=== PATIENT | male | born 1980 | race Caucasian/White ===

== ENCOUNTER 2016-11-11 08:52 | Inpatient (IN) | payer OTHER ==
[2016-11-11 08:54] VITALS: BMI 22.8
--- NOTE | 2016-11-11 13:54 | HP ---
CIWA Score - CIWA Score Nausea/Vomitin-Int. Nausea w/Dry Heave Muscle Tremors: 4-Moderate,w/Arms Extend Anxiety: 4-Mod. Anxious/Guarded Agitation: 4-Moderately Restless Paroxysmal Sweats: 1-Minimal Palms Moist Orientation: 0-Oriented Tacttile Disturbances: 3-Moderate Itch/Numb/Burn Auditory Disturbances: 0-None Visual Disturbances: 0-None Headache: 1-Very Mild CIWA-Ar Total Score: 21 Admission ROS S - HPI Chief Complaint: DETOX TX FOR ALCOHOL DEPENDENCE Allergies/Adverse Reactions: Allergies Allergy/AdvReac Type Severity Reaction Status Date / Time No Known Allergies Allergy Verified 11/11/16 12:06 History of Present Illness: 36 Y/O H/M WITH A HX OF ALCOHOL,COCAINE AND HEROIN DEPENDENCE SEEKING [facility] TX[facility]. LAST DOSE 11/03/16. Exam Limitations: No Limitations - Ebola screening Have you traveled outside of the country in the last 21 days: No Have you had contact with anyone from an Ebola affected area: No Have you been sick,other than usual withdrawal symptoms: No Do you have a fever: No - Review of Systems Constitutional: Chills, Loss of Appetite, Night Sweats, Changes in sleep EENT: reports: Blurred Vision, Tearing, Nose Congestion, Dental Problems ( MISSING TEETH) Respiratory: reports: No Symptoms reported Cardiac: reports: Lightheadedness GI: reports: Constipated, Nausea, Poor Appetite, Poor Fluid Intake, Vomiting : reports: Frequency Musculoskeletal: reports: Back Pain, Joint Pain, Muscle Pain Integumentary: reports: Bruising (REDNESS AND SWELLING TO RIGHT UPPER ARM DUE TO IVDU.) Neuro: reports: Headache, Numbness, Tremors, Unsteady Gait, Dizziness Endocrine: reports: No Symptoms Reported Hematology: reports: No Symptoms Reported Psychiatric: reports: Orientated x3, Anxious Other Systems: Reviewed and Negative Patient History - Patient Medical History Hx Anemia: No Hx Asthma: No Hx Chronic Obstructive Pulmonary Disease (COPD): No Hx Cardiac Disorders: No Hx Hypertension: No Hx Seizures: No Hx Diabetes: No Hx Gastrointestinal Disorders: No Hx Genitourinary Disorders: No Hx Sexually Transmitted Disorders: No Hx Renal Disease (ESRD): No Hx Thyroid Disease: No Hx Human Immunodeficiency Virus (HIV): No (NEGATIVE HX) Hx Hepatitis C: Yes Hx Depression: No Hx Suicide Attempt: No Hx Schizophrenia: No - Patient Surgical History Past Surgical History: No Hx Neurologic Surgery: No Hx Cataract Extraction: No Hx Cardiac Surgery: No Hx Lung Surgery: No Hx Breast Surgery: No Hx Breast Biopsy: No Hx Abdominal Surgery: No Hx Appendectomy: No Hx Cholecystectomy: No Hx Genitourinary Surgery: No Hx Orthopedic Surgery: No Anesthesia Reaction: No - PPD History Previous Implant?: Yes Documented Results: Negative w/o proof Implanted On Prior R Admission?: No PPD to be Administered?: Yes - Reproductive History Patient is a Female of Child Bearing Age (11 -55 yrs old): No (MALE) Patient : No (N/A) - Smoking Cessation Smoking history: Current every day smoker Have you smoked in the past 12 months: Yes Aproximately how many cigarettes per day: 20 Hx Chewing Tobacco Use: No Initiated information on smoking cessation: Yes 'Breaking Loose' booklet given: 11/11/16 - Substance & Tx. History Hx Alcohol Use: Yes (VODKA/BEER) Substance Use Type: Alcohol, Cocaine, Heroin Hx Substance Use Treatment: Yes (CURRENTLY AT [facility] ) - Substances Abused Heroin Route: Injection Frequency: Daily Amount used: 10-15 bags Age of first use: 14 Date of Last Use: 11/10/16 Alcohol-vodka/beer Route: Oral Frequency: Daily Amount used: 2 pts./1 case Age of first use: 15 Date of Last Use: 11/10/16 Cocaine Route: Injection Frequency: 3-6 times per week (2-3 X/WEEK) Amount used: $3 BAGS Age of first use: 14 Date of Last Use: 11/03/16 Family Disease History - Family Disease History Family Disease History: Diabetes: Grandparent (MGF-HTN), Mother, Heart Disease: Grandparent Admission Physical Exam BHS - Vital Signs Vital Signs: Vital Signs - 24 hr 11/11/16 08:53 Temperature 97.7 F Pulse Rate 76 Respiratory 18 Rate Blood Pressure 113/75 - Physical General Appearance: Yes: Moderate Distress, Irritable, Anxious HEENTM: Yes: EOMI, Normocephalic, KALEY, Pharynx Normal Respiratory: Yes: Chest Non-Tender, Lungs Clear, Normal Breath Sounds, No Respiratory Distress Neck: Yes: No masses,lesions,Nodules, Supple, Trachea in good position Breast: Yes: Breast Exam Deferred Cardiology: Yes: Regular Rhythm, Regular Rate, S1, S2 Abdominal: Yes: Normal Bowel Sounds, Non Tender, Flat, Soft Genitourinary: Yes: Other (N/C) Back: Yes: Within Normal Limits Musculoskeletal: Yes: full range of Motion, Gait Steady Extremities: Yes: Normal Range of Motion, Non-Tender 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, Fully Oriented, Alert Integumentary: Yes: Dry, Warm, Track Lu (RIGHT UPPER ARM WITH ABSCESS/REDNESS /WARMTH) Lymphatic: Yes: Within Normal Limits - Diagnostic (1) Alcohol dependence with uncomplicated withdrawal Status: Acute (2) Cocaine dependence, uncomplicated Status: Acute (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
[2016-11-11] MEDS ORDERED: diphenhydrAMINE HCL 50 MG CAPSULE PO PRN (14:06)
[2016-11-11] MEDS ORDERED: P-EPHED 60MG/TRIPROLIDI 2.5MG TABLET PO PRN (14:06)
[2016-11-11] MEDS ORDERED: MAGNESIUM CITRATE 300 ML BOTTLE PO PRN (14:06)
[2016-11-11] MEDS ORDERED: MAGNESIUM HYDROX 2400MG/30ML ORAL SUSPENSION 30 ML CUP PO PRN (14:06)
[2016-11-11] MEDS ORDERED: chlordiazePOXIDE HCL 25 MG CAPSULE PO PRN (14:06)
[2016-11-11] MEDS ORDERED: guaiFENesin/D-METHORPHAN HB 10 ML UNIT-DOSE CUPS PO PRN (14:06)
[2016-11-11] MEDS ORDERED: ACETAMINOPHEN 325 MG TABLET (FP) PO PRN (14:06)
[2016-11-11] MEDS ORDERED: chlordiazePOXIDE HCL 25 MG CAPSULE PO ONE (14:16)
[2016-11-11] MEDS ORDERED: METHADONE HCL 10 MG TABLET PO ONE (14:20)
--- NOTE | 2016-11-11 14:55 | CONSULT ---
[facility] Psychiatric Consult - Data Date of interview: 11/11/16 Admission source: [facility] Identifying data: This is 36 years old male with no psychiatric hospitalization history intoxicated with: Cocaine, Alcohol, Heroin, Nicotine, Methadone Substance Abuse History: Drug Screen Negative: No. Urine Drug Screen Results: CARSON-Cocaine, OPI-Opiates, MTD-Methadone. - Smoking Cessation. Smoking history : Current every day smoker. Have you smoked in the past 12 months: Yes. Aproximately how many cigarettes per day: 20. Hx Chewing Tobacco Use: No. Initiated information on smoking cessation: Yes. 'Breaking Loose' booklet given : 11/11/16. - Substance & Tx. History. Hx Alcohol Use: Yes (VODKA/BEER). Substance Use Type: Alcohol, Cocaine, Heroin. Hx Substance Use Treatment: Yes ( CURRENTLY AT [facility] ). - Substances Abused. Heroin. Route: Injection. Frequency: Daily. Amount used: 10-15 bags. Age of first use : 14. Date of Last Use: 11/10/16. Alcohol-vodka/beer. Route: Oral. Frequency: Daily. Amount used: 2 pts./1 case. Age of first use: 15. Date of Last Use: 11/10/16. Cocaine. Route: Injection. Frequency: 3-6 times per week (2-3 X/WEEK). Amount used: $3 BAGS. Age of first use: 14. Date of Last Use: 11/03/16 Medical History: HepC+, MMTP 30mg poqd Psychiatric History: Patient reports history of anxiety, reports no history of psychiatric admissions, reports no medications taking prior top admission. Patient reports unclear history of Schizophrenia, reports no psychiatric medications taking prior to admission, reports nost recent admission on few years ago at [facility] for safety. Reports taking Seroquel 100mg po qhs for insomnia. Reports no suicidal history Physical/Sexual Abuse/Trauma History: Denies Additional Comment: Drug Screen Negative: No. Urine Drug Screen Results: CARSON- Cocaine, OPI-Opiates, MTD-Methadone Mental Status Exam - Mental Status Exam Alert and Oriented to: Person Cognitive Function: Fair Patient Appearance: Well Groomed Mood: Euthymic Affect: Mood Congruent Patient Behavior: Cooperative Speech Pattern: Appropriate Voice Loudness: Normal Thought Process: Goal Oriented Thought Disorder: Being Controlled Hallucinations: Denies Suicidal Ideation: Denies Homicidal Ideation: Denies Insight/Judgement: Fair Sleep: Difficulty falling asleep Appetite: Fair Muscle strength/Tone: Normal Gait/Station: Normal Additional Comments: Observation. Detox Unit Care Protocol Psychiatric Findings - Problem List (Hooks 1, 2,3) (1) Alcohol dependence with uncomplicated withdrawal Current Visit: Yes Status: Acute (2) Cocaine dependence, uncomplicated Current Visit: Yes Status: Acute (3) Methadone maintenance therapy patient Current Visit: Yes Status: Chronic (4) Heroin dependence Current Visit: Yes Status: Acute (5) Nicotine dependence Current Visit: Yes Status: Acute (6) Drug-induced mood disorder Current Visit: Yes Status: Acute - Initial Treatment Plan Initial Treatment Plan: Observation. Detox Unit Care Protocol. Seroquel 100mg po qhs
[2016-11-11] MEDS: BACITRACIN 0.9 GM PACKET TP SCH (15:14)
[2016-11-11] MEDS: NICOTINE 21 MG/24 HOURS TOPICAL PATCH TD SCH (15:15)
[2016-11-11 16:55] LABS: URINE APPEARANCE CLEAR; URINE BILIRUBIN NEGATIVE (NEGATIVE); URINE BLOOD 1+ (NEGATIVE); URINE COLOR YELLOW; URINE GLUCOSE (UA) NEGATIVE (NEGATIVE); URINE KETONE TRACE (NEGATIVE); URINE LEUK ESTERASE NEGATIVE (NEGATIVE); URINE NITRITE NEGATIVE (NEGATIVE); URINE PROTEIN NEGATIVE (NEGATIVE)
[2016-11-11] MEDS: chlordiazePOXIDE HCL 25 MG CAPSULE PO SCH ×2 (17:53→22:07)
[2016-11-11 18:09] LABS: CALCIUM OXALATE CRYSTALS FEW /hpf (NONE SEEN); URINE BACTERIA RARE /hpf (NONE SEEN); URINE HYALINE CAST 1 /lpf; URINE MUCUS RARE; URINE RBC 5 /hpf (0-3); URINE WBC <1 /hpf (3-5)
[2016-11-11] MEDS: NICOTINE POLACRILEX 4 MG GUM BUC PRN (18:20)
[2016-11-11] MEDS: CEPHALEXIN MONOHYDRATE 500 MG CAPSULE (UD) PO SCH (22:07)
[2016-11-11] MEDS: QUEtiapine FUMARATE 100 MG TABLET (FP) PO SCH (22:07)
[2016-11-11] MEDS: THIAMINE HCL 100 MG TABLET (FP) PO SCH (22:07)
[2016-11-12] MEDS: chlordiazePOXIDE HCL 25 MG CAPSULE PO SCH ×4 (05:54→22:40)
[2016-11-12] MEDS ORDERED: METHADONE HCL 40 MG DISPERSABLE TABLET PO ONE (06:00)
--- NOTE | 2016-11-12 09:26 | EKG ---
Test Reason : Blood Pressure : / mmHG Vent. Rate : 071 BPM Atrial Rate : 071 BPM P-R Int : 136 ms QRS Dur : 106 ms QT Int : 414 ms P-R-T Axes : 063 049 044 degrees QTc Int : 449 ms NORMAL SINUS RHYTHM INCOMPLETE RIGHT BUNDLE BRANCH BLOCK NO PREVIOUS ECGS AVAILABLE Confirmed by TED FERMIN MD ([id number]) on 11/12/2016 9:26:04 AM Referred By: Confirmed By:TED FERMIN MD
[2016-11-12] MEDS: NICOTINE POLACRILEX 4 MG GUM BUC PRN (09:51)
[2016-11-12] MEDS: PRENATAL VITAMINS W/ FOLIC ACID TABLET (FP) PO SCH (10:10)
[2016-11-12] MEDS: BACITRACIN 0.9 GM PACKET TP SCH (10:10)
[2016-11-12] MEDS: CEPHALEXIN MONOHYDRATE 500 MG CAPSULE (UD) PO SCH ×2 (10:11→22:41)
[2016-11-12] MEDS: NICOTINE 21 MG/24 HOURS TOPICAL PATCH TD SCH (10:11)
[2016-11-12 10:17] LABS: MCH 29.3 pg (25.7-33.7); MCHC 33.3 g/dl (32.0-35.9); MEAN CELL VOLUME 88.2 fl (80-96); MEAN PLT VOLUME 9.9 fl (7.5-11.1); PLATELET COUNT 222 K/MM3 (134-434); RDW 13.6 % (11.9-15.9); WHITE BLOOD COUNT 7.2 K/mm3 (4.0-10.0)
--- NOTE | 2016-11-12 10:27 | PN ---
[facility] CIWA - CIWA Score Nausea/Vomitin Muscle Tremors: 3 Anxiety: 3 Agitation: 3 Paroxysmal Sweats: 1-Minimal Palms Moist Orientation: 0-Oriented Tacttile Disturbances: 1-Very Mild Itch/Numbness Auditory Disturbances: 1-Very Mild Visual Disturbances: 1-Very Mild Sensitivity Headache: 2-Mild CIWA-Ar Total Score: 18 S Progress Note (SOAP) Subjective: ALERT,IRRITABLE,ANXIOUS,INTERRUPTED SLEEP,TREMOR Objective: 11/12/16 10:24 Vital Signs Temperature 96.1 F L 11/12/16 10:00 Pulse Rate 82 11/12/16 10:00 Respiratory Rate 18 11/12/16 10:00 Blood Pressure 110/63 11/12/16 10:00 O2 Sat by Pulse Oximetry (%) EKG NSR, NO CHEST PAIN,NO SOB,NO DIZZINESS Laboratory Last Values WBC 7.2 K/mm3 (4.0-10.0) 11/12/16 06:00 RBC 4.66 M/mm3 (4.00-5.60) 11/12/16 06:00 Hgb 13.7 GM/dL (11.7-16.9) 11/12/16 06:00 Hct 41.1 % (35.4-49) 11/12/16 06:00 MCV 88.2 fl (80-96) 11/12/16 06:00 MCH 29.3 pg (25.7-33.7) 11/12/16 06:00 MCHC 33.3 g/dl (32.0-35.9) 11/12/16 06:00 RDW 13.6 % (11.9-15.9) 11/12/16 06:00 Plt Count 222 K/MM3 (134-434) 11/12/16 06:00 MPV 9.9 fl (7.5-11.1) 11/12/16 06:00 Urine Color Yellow 11/11/16 14:40 Urine Appearance Clear 11/11/16 14:40 Urine pH 5.0 (5.0-8.0) 11/11/16 14:40 Ur Specific [place] 1.025 (1.005-1.025) 11/11/16 14:40 Urine Protein Negative (NEGATIVE) 11/11/16 14:40 Urine Glucose (UA) Negative (NEGATIVE) 11/11/16 14:40 Urine Ketones Trace (NEGATIVE) H 11/11/16 14:40 Urine Blood 1+ (NEGATIVE) H 11/11/16 14:40 Urine Nitrite Negative (NEGATIVE) 11/11/16 14:40 Urine Bilirubin Negative (NEGATIVE) 11/11/16 14:40 Urine Urobilinogen 2.0 mg/dL (0.2-1.0) 11/11/16 14:40 Ur Leukocyte Esterase Negative (NEGATIVE) 11/11/16 14:40 Urine RBC 5 /hpf (0-3) 11/11/16 14:40 Urine WBC <1 /hpf (3-5) 11/11/16 14:40 Ur Epithelial Cells Rare /hpf (FEW) 11/11/16 14:40 Calcium Oxalate Crystal Few /hpf (NONE SEEN) 11/11/16 14:40 Urine Bacteria Rare /hpf (NONE SEEN) 11/11/16 14:40 Hyaline Casts 1 /lpf 11/11/16 14:40 Urine Mucus Rare 11/11/16 14:40 HIV 1&2 Antibody Screen [facility] 11/11/16 13:30 HIV P24 Antigen [facility] 11/11/16 13:30 Assessment: 11/12/16 10:26 WITHDRAWAL SYMPTOM Plan: CONTINUE DETOX
[2016-11-12 10:43] LABS: ALBUMIN 4.4 g/dl (3.4-5.0); ALK PHOS 74 U/L (45-117); ANION GAP 9 (8-16); BILIRUBIN,TOTAL 1.1 mg/dL (0.2-1.0); CALCIUM 9.7 mg/dL (8.5-10.1); CO2 26 mmol/L (21-32); CREATININE 1.1 mg/dL (0.7-1.3); GLUCOSE,RANDOM 98 mg/dL (74-106); SGOT/AST 24 U/L (15-37); SGPT/ALT 45 U/L (12-78); TOT PROT 8.1 g/dl (6.4-8.2)
[2016-11-12] MEDS ORDERED: hydrOXYzine PAMOATE 50 MG CAPSULE (FP) PO PRN (12:00)
[2016-11-12 14:04] LABS: HIV 1 & 2 AB NEGATIVE; HIV 1 AGp24 NEGATIVE
[2016-11-12] MEDS: QUEtiapine FUMARATE 100 MG TABLET (FP) PO SCH (22:41)
[2016-11-12] MEDS: THIAMINE HCL 100 MG TABLET (FP) PO SCH (22:41)
[2016-11-13] MEDS ORDERED: chlordiazePOXIDE HCL 25 MG CAPSULE ONE (02:20)
[2016-11-13] MEDS ORDERED: METHADONE HCL 40 MG DISPERSABLE TABLET ONE (05:49)
[2016-11-13] MEDS ORDERED: METHADONE HCL 10 MG TABLET ONE (05:49)
[2016-11-13] MEDS ORDERED: METHADONE 40 MG, METHADONE 10 MG PO ONE (06:00)
[2016-11-13] MEDS ORDERED: METHADONE HCL 10 MG TABLET PO ONE (06:00)
[2016-11-13] MEDS: chlordiazePOXIDE HCL 25 MG CAPSULE PO SCH ×2 (07:10→10:08)
[2016-11-13] MEDS: PRENATAL VITAMINS W/ FOLIC ACID TABLET (FP) PO SCH (10:07)
[2016-11-13] MEDS: CEPHALEXIN MONOHYDRATE 500 MG CAPSULE (UD) PO SCH ×2 (10:07→22:06)
[2016-11-13] MEDS: NICOTINE 21 MG/24 HOURS TOPICAL PATCH TD SCH (10:08)
[2016-11-13] MEDS: BACITRACIN 0.9 GM PACKET TP SCH (10:08)
[2016-11-13] MEDS: NICOTINE POLACRILEX 4 MG GUM BUC PRN (10:35)
--- NOTE | 2016-11-13 11:13 | PN ---
[facility] CIWA - CIWA Score Nausea/Vomitin-No Nausea/No Vomiting Muscle Tremors: 4-Moderate,w/Arms Extend Anxiety: 4-Mod. Anxious/Guarded Agitation: 4-Moderately Restless Paroxysmal Sweats: 3 Orientation: 0-Oriented Tacttile Disturbances: 0-None Auditory Disturbances: 0-None Visual Disturbances: 0-None Headache: 0-None Present CIWA-Ar Total Score: 15 S Progress Note (SOAP) Subjective: Restless & pacing,tremors,anxiety,sweating.interrupted sleep. Objective: 11/13/16 11:13 Vital Signs - 8 hr 11/13/16 11/13/16 06:00 09:43 Temperature 97.0 F L 97.3 F L Pulse Rate 67 80 Respiratory 18 16 Rate Blood Pressure 106/59 127/77 Laboratory Results - last 24 hr 11/12/16 11/12/16 06:00 09:10 RPR Titer Nonreactive HIV 1&2 Antibody Screen Negative HIV P24 Antigen Negative Laboratory Last Values WBC 7.2 K/mm3 (4.0-10.0) 11/12/16 06:00 RBC 4.66 M/mm3 (4.00-5.60) 11/12/16 06:00 Hgb 13.7 GM/dL (11.7-16.9) 11/12/16 06:00 Hct 41.1 % (35.4-49) 11/12/16 06:00 MCV 88.2 fl (80-96) 11/12/16 06:00 MCH 29.3 pg (25.7-33.7) 11/12/16 06:00 MCHC 33.3 g/dl (32.0-35.9) 11/12/16 06:00 RDW 13.6 % (11.9-15.9) 11/12/16 06:00 Plt Count 222 K/MM3 (134-434) 11/12/16 06:00 MPV 9.9 fl (7.5-11.1) 11/12/16 06:00 Sodium 138 mmol/L (136-145) 11/12/16 06:00 Potassium 5.1 mmol/L (3.5-5.1) 11/12/16 06:00 Chloride 103 mmol/L (98-107) 11/12/16 06:00 Carbon Dioxide 26 mmol/L (21-32) 11/12/16 06:00 Anion Gap 9 (8-16) 11/12/16 06:00 BUN 19 mg/dL (7-18) H 11/12/16 06:00 Creatinine 1.1 mg/dL (0.7-1.3) 11/12/16 06:00 Creat Clearance w eGFR > 60 (>60) 11/12/16 06:00 Random Glucose 98 mg/dL (74-106) 11/12/16 06:00 Calcium 9.7 mg/dL (8.5-10.1) 11/12/16 06:00 Total Bilirubin 1.1 mg/dL (0.2-1.0) H 11/12/16 06:00 AST 24 U/L (15-37) 11/12/16 06:00 ALT 45 U/L (12-78) 11/12/16 06:00 Alkaline Phosphatase 74 U/L (45-117) 11/12/16 06:00 Total Protein 8.1 g/dl (6.4-8.2) 11/12/16 06:00 Albumin 4.4 g/dl (3.4-5.0) 11/12/16 06:00 Urine Color Yellow 11/11/16 14:40 Urine Appearance Clear 11/11/16 14:40 Urine pH 5.0 (5.0-8.0) 11/11/16 14:40 Ur Specific [place] 1.025 (1.005-1.025) 11/11/16 14:40 Urine Protein Negative (NEGATIVE) 11/11/16 14:40 Urine Glucose (UA) Negative (NEGATIVE) 11/11/16 14:40 Urine Ketones Trace (NEGATIVE) H 11/11/16 14:40 Urine Blood 1+ (NEGATIVE) H 11/11/16 14:40 Urine Nitrite Negative (NEGATIVE) 11/11/16 14:40 Urine Bilirubin Negative (NEGATIVE) 11/11/16 14:40 Urine Urobilinogen 2.0 mg/dL (0.2-1.0) 11/11/16 14:40 Ur Leukocyte Esterase Negative (NEGATIVE) 11/11/16 14:40 Urine RBC 5 /hpf (0-3) 11/11/16 14:40 Urine WBC <1 /hpf (3-5) 11/11/16 14:40 Ur Epithelial Cells Rare /hpf (FEW) 11/11/16 14:40 Calcium Oxalate Crystal Few /hpf (NONE SEEN) 11/11/16 14:40 Urine Bacteria Rare /hpf (NONE SEEN) 11/11/16 14:40 Hyaline Casts 1 /lpf 11/11/16 14:40 Urine Mucus Rare 11/11/16 14:40 RPR Titer Nonreactive (NONREACTIVE) 11/12/16 06:00 HIV 1&2 Antibody Screen Negative 11/12/16 09:10 HIV P24 Antigen Negative 11/12/16 09:10 labs noted Assessment: 11/13/16 11:13 Withdrawal sx. Plan: Continue detox
[2016-11-13] MEDS: IBUPROFEN 400 MG TABLET (FP) PO PRN (15:26)
[2016-11-13] MEDS: MAG HYDROX/AL HYDROX/SIMETH 30 ML UNIT-DOSE CUP PO PRN (15:26)
[2016-11-13] MEDS: chlordiazePOXIDE 5 MG CAPSULE PO SCH ×2 (17:01→22:06)
[2016-11-13] MEDS: MENTHOL/PHENOL 1 EACH UD MM PRN (17:02)
[2016-11-13] MEDS: QUEtiapine FUMARATE 100 MG TABLET (FP) PO SCH (22:06)
[2016-11-13] MEDS: THIAMINE HCL 100 MG TABLET (FP) PO SCH (22:06)
[2016-11-14] MEDS ORDERED: METHADONE HCL 40 MG DISPERSABLE TABLET ONE (05:34)
[2016-11-14] MEDS ORDERED: METHADONE HCL 10 MG TABLET ONE (05:35)
[2016-11-14] MEDS ORDERED: METHADONE HCL 10 MG TABLET PO ONE (06:00)
[2016-11-14] MEDS ORDERED: METHADONE 40 MG, METHADONE 20 MG PO ONE (06:00)
[2016-11-14] MEDS: chlordiazePOXIDE 5 MG CAPSULE PO SCH ×2 (07:00→10:29)
[2016-11-14] MEDS: MENTHOL/PHENOL 1 EACH UD MM PRN ×2 (09:13→13:24)
[2016-11-14] MEDS: NICOTINE 21 MG/24 HOURS TOPICAL PATCH TD SCH (10:25)
[2016-11-14] MEDS: PRENATAL VITAMINS W/ FOLIC ACID TABLET (FP) PO SCH (10:28)
[2016-11-14] MEDS: CEPHALEXIN MONOHYDRATE 500 MG CAPSULE (UD) PO SCH ×2 (10:28→22:09)
[2016-11-14] MEDS: BACITRACIN 0.9 GM PACKET TP SCH (10:29)
[2016-11-14] MEDS: LOPERAMIDE HCL 2 MG CAPSULE PO PRN ×2 (10:29→18:31)
[2016-11-14] MEDS: IBUPROFEN 400 MG TABLET (FP) PO PRN (10:30)
--- NOTE | 2016-11-14 14:48 | PN ---
B[facility] Progress Note (SOAP) Subjective: Restless/agitated,interrupted sleep,restless Objective: 11/14/16 14:46 Vital Signs - 8 hr 11/14/16 11/14/16 10:00 13:41 Temperature 97.2 F L 98.4 F Pulse Rate 86 83 Respiratory 18 18 Rate Blood Pressure 136/72 114/67 Laboratory Last Values WBC 7.2 K/mm3 (4.0-10.0) 11/12/16 06:00 RBC 4.66 M/mm3 (4.00-5.60) 11/12/16 06:00 Hgb 13.7 GM/dL (11.7-16.9) 11/12/16 06:00 Hct 41.1 % (35.4-49) 11/12/16 06:00 MCV 88.2 fl (80-96) 11/12/16 06:00 MCH 29.3 pg (25.7-33.7) 11/12/16 06:00 MCHC 33.3 g/dl (32.0-35.9) 11/12/16 06:00 RDW 13.6 % (11.9-15.9) 11/12/16 06:00 Plt Count 222 K/MM3 (134-434) 11/12/16 06:00 MPV 9.9 fl (7.5-11.1) 11/12/16 06:00 Sodium 138 mmol/L (136-145) 11/12/16 06:00 Potassium 5.1 mmol/L (3.5-5.1) 11/12/16 06:00 Chloride 103 mmol/L (98-107) 11/12/16 06:00 Carbon Dioxide 26 mmol/L (21-32) 11/12/16 06:00 Anion Gap 9 (8-16) 11/12/16 06:00 BUN 19 mg/dL (7-18) H 11/12/16 06:00 Creatinine 1.1 mg/dL (0.7-1.3) 11/12/16 06:00 Creat Clearance w eGFR > 60 (>60) 11/12/16 06:00 Random Glucose 98 mg/dL (74-106) 11/12/16 06:00 Calcium 9.7 mg/dL (8.5-10.1) 11/12/16 06:00 Total Bilirubin 1.1 mg/dL (0.2-1.0) H 11/12/16 06:00 AST 24 U/L (15-37) 11/12/16 06:00 ALT 45 U/L (12-78) 11/12/16 06:00 Alkaline Phosphatase 74 U/L (45-117) 11/12/16 06:00 Total Protein 8.1 g/dl (6.4-8.2) 11/12/16 06:00 Albumin 4.4 g/dl (3.4-5.0) 11/12/16 06:00 Urine Color Yellow 11/11/16 14:40 Urine Appearance Clear 11/11/16 14:40 Urine pH 5.0 (5.0-8.0) 11/11/16 14:40 Ur Specific [place] 1.025 (1.005-1.025) 11/11/16 14:40 Urine Protein Negative (NEGATIVE) 11/11/16 14:40 Urine Glucose (UA) Negative (NEGATIVE) 11/11/16 14:40 Urine Ketones Trace (NEGATIVE) H 11/11/16 14:40 Urine Blood 1+ (NEGATIVE) H 11/11/16 14:40 Urine Nitrite Negative (NEGATIVE) 11/11/16 14:40 Urine Bilirubin Negative (NEGATIVE) 11/11/16 14:40 Urine Urobilinogen 2.0 mg/dL (0.2-1.0) 11/11/16 14:40 Ur Leukocyte Esterase Negative (NEGATIVE) 11/11/16 14:40 Urine RBC 5 /hpf (0-3) 11/11/16 14:40 Urine WBC <1 /hpf (3-5) 11/11/16 14:40 Ur Epithelial Cells Rare /hpf (FEW) 11/11/16 14:40 Calcium Oxalate Crystal Few /hpf (NONE SEEN) 11/11/16 14:40 Urine Bacteria Rare /hpf (NONE SEEN) 11/11/16 14:40 Hyaline Casts 1 /lpf 11/11/16 14:40 Urine Mucus Rare 11/11/16 14:40 RPR Titer Nonreactive (NONREACTIVE) 11/12/16 06:00 HIV 1&2 Antibody Screen Negative 11/12/16 09:10 HIV P24 Antigen Negative 11/12/16 09:10 labs noted Assessment: 11/14/16 14:47 Withdrawal sx. Plan: Continue detox
[2016-11-14] MEDS: MAG HYDROX/AL HYDROX/SIMETH 30 ML UNIT-DOSE CUP PO PRN (15:18)
[2016-11-14] MEDS: chlordiazePOXIDE HCL 10 MG CAPSULE PO SCH ×2 (19:15→22:09)
[2016-11-14] MEDS: QUEtiapine FUMARATE 100 MG TABLET (FP) PO SCH (22:09)
[2016-11-14] MEDS: THIAMINE HCL 100 MG TABLET (FP) PO SCH (22:09)
[2016-11-15] MEDS ORDERED: METHADONE HCL 40 MG DISPERSABLE TABLET ONE (04:07)
[2016-11-15] MEDS ORDERED: METHADONE HCL 10 MG TABLET ONE (04:07)
[2016-11-15] MEDS: chlordiazePOXIDE HCL 10 MG CAPSULE PO SCH (05:31)
[2016-11-15] MEDS ORDERED: METHADONE HCL 10 MG TABLET PO ONE (06:00)
[2016-11-15] MEDS ORDERED: METHADONE 40 MG, METHADONE 30 MG PO ONE (06:00)
--- NOTE | 2016-11-15 08:13 | DS ---
[facility] Detox Discharge Summary Admission Date: 11/11/16 Discharge Date: 11/15/16 - History Present History: Alcohol Dependence, Cocaine Dependence, MMTP Additional Comments: FOLLOW UP WITH AFTER CARE PROGRAM ARRANGEMENT Pertinent Past History: MMTP - Physical Exam Results Vital Signs: Vital Signs Temperature 97.7 F 11/15/16 05:53 Pulse Rate 72 11/15/16 05:53 Respiratory Rate 18 11/15/16 05:53 Blood Pressure 101/60 11/15/16 05:53 O2 Sat by Pulse Oximetry (%) Pertinent Admission Physical Exam Findings: WITHDRAWAL SYMPTOM - Treatment Hospital Course: Detox Protocol Followed, Detoxed Safely, Responded well, Discharged Condition Good Patient has Accepted a Rehab Referral to: DECLINED - Medication Discharge Medications: Ambulatory Orders Quetiapine Fumarate [Seroquel] 100 mg PO HS #30 tablet 11/11/16 - Diagnosis (1) Alcohol dependence with uncomplicated withdrawal Current Visit: Yes Status: Acute (2) Cocaine dependence, uncomplicated Current Visit: Yes Status: Acute (3) Drug-induced mood disorder Current Visit: Yes Status: Acute (4) Nicotine dependence Current Visit: Yes Status: Acute (5) Methadone maintenance therapy patient Current Visit: Yes Status: Chronic - AMA Did Patient Leave Against Medical Advice: No
[2016-11-15 09:48] VITALS: BP 104/68; PULSE 76; TEMP 97.9
[2016-11-16] MEDS ORDERED: METHADONE HCL 40 MG DISPERSABLE TABLET PO ONE (06:00)
[2016-11-17] MEDS ORDERED: METHADONE HCL 10 MG TABLET PO ONE (06:00)
[2016-11-17] MEDS ORDERED: METHADONE 80 MG, METHADONE 10 MG PO ONE (06:00)
[2016-11-18] MEDS ORDERED: METHADONE HCL 40 MG DISPERSABLE TABLET PO SCH (06:00)
== END 2016-11-15 09:18 | disposition home or self-care (01) | DRG 773 ==
LOC: YASAS 08:52 → Y6N 12:44
PROVIDERS: ADMIT Internal Medicine; ATTEND Internal Medicine
PROC: HZ2ZZZZ Detoxification Services for Substance Abuse Treatment (ICD-10-PCS; principal; 2016-11-11)
DX: F10.230 Alcohol dependence with withdrawal, uncomplicated (principal); F11.20 Opioid dependence, uncomplicated; F14.20 Cocaine dependence, uncomplicated; F17.210 Nicotine dependence, cigarettes, uncomplicated; F19.24 Other psychoactive substance dependence with psychoactive substance-induced mood disorder; B18.2 Chronic viral hepatitis C
CPT/HCPCS: 36415; 80053; 81003; 81015; 85027; 86593; 87389; 93005; 93010